=== PATIENT | female | born 1975 | race African-American/Black ===

== ENCOUNTER 2016-06-14 12:58 | Emergency (ER) | payer MEDICAID ==
[~2016-06-14] VITALS: Ht 170.2 cm; Wt 73.0 kg
[2016-06-14] MEDS ORDERED: Ketorolac 30mg Inj IV ONE (13:30)
--- NOTE | 2016-06-14 13:50 | Emergency Room Report ---
History of Present Illness General Chief Complaint: Abdominal Pain Source: Patient Present Illness HPI 41-year-old female presents to emergency Department complaining of left-sided flank pain that is 10 out of 10 in severity and radiates down into the left groin/thigh with certain positions and intermittently. Patient reports 2 episodes of vomiting yesterday denies fevers or chills. denies blood in the vomit or stool. Pt states that if she stands upright and looks down towards her feet she will have a sharp pain down the left side and her left leg almost gives out due to pain. pt. denies spinal pain. Patient denies hematuria patient denies abdominal pain. pt reports having D&C performed in March 2016 and has had intermittent spotting since, denies vaginal d/c or hx of STIs or PID. Patient denies trauma or fall or strenuous activity. Denies CP, Palpitations, LOC, AMS, dizziness, Changes in Vision, Sensation, paresthesias, or a sudden severe headache. Allergies: Coded Allergies: LATEX (Verified Allergy, Unknown, 06/14/16) Patient History Past Medical History: see triage record Past Surgical History: none Pertinent Family History: none Now: No Immunizations: UTD Reviewed Nursing Documentation: PMH: Agreed, PSxH: Agreed Nursing Documentation-PMH Past Medical History: No Stated History Review of Systems All Other Systems: negative except mentioned in HPI Physical Exam Vital Signs Date Time Temp Pulse Resp B/P Pulse Ox O2 Delivery O2 Flow Rate FiO2 06/14/16 13:06 97.2 74 20 123/81 100 Room Air Sp02 EP Interpretation: reviewed, normal General Appearance: no apparent distress, alert, GCS 15, non-toxic Head: normocephalic, atraumatic Eyes: bilateral eye PERRL, bilateral eye normal inspection ENT: hearing grossly normal, normal pharynx, no angioedema, normal voice Neck: full range of motion, supple/symm/no masses Respiratory: chest non-tender, lungs clear, normal breath sounds, speaking full sentences Cardiovascular #1: regular rate, rhythm, no edema Gastrointestinal: normal bowel sounds, soft, no guarding, no rebound, other - Left lower abdominal TTP, and flank TTP, no right sided abdominal TTP, no peritoneal signs, no guarding. Rectal: deferred Genitourinary: normal inspection, no CVA tenderness, CVA tenderness (L) Musculoskeletal: back normal, gait/station normal, normal range of motion, tender - left paraspinal TTP vs CVA TTP , no midline TTP, no obvious deformities. Neurologic: alert, oriented x3, responsive, motor strength/tone normal, sensory intact, speech normal Psychiatric: judgement/insight normal, memory normal, mood/affect normal, no suicidal/homicidal ideation Skin: normal color, no rash, warm/dry, well hydrated Lymphatic: no adenopathy Medical Decision Making PA Attestation Dr. Valdes is my supervising Physician whom patient management has been discussed with. Diagnostic Impression: Primary Impression: Left flank pain Additional Impression: Sciatica of left side ER Course 41-year-old female presents to emergency Department complaining of left-sided flank pain that is 10 out of 10 in severity and radiates down into the left groin/thigh with certain positions and intermittently. Patient reports 2 episodes of vomiting yesterday denies fevers or chills. Patient denies hematuria patient denies abdominal pain. Patient denies trauma or fall or strenuous activity. Ddx considered but are not limited to Diverticulitis, acute appy, diarrhea,UC, PUD, GE, pancreatitis, gallstone, kidney stone, pyelonephritis, UTI, obstruction. Vital signs: are WNL, pt. is afebrile H&PE are most consistent with possible kidney stone or sciatica. ORDERS: -CBC, BMP: electrolytes ok, no anemia - unremarkable - UA: RBC's and occult blood in the urine suspicious for renal stones. -Urine Hcg: Negative - CT abdomen and Pelvis NON-CONTRAST: no stones, 14mm mass in the liver segment 2 most likely benign cyst, trace free cul-de-sac fluid noted, calcified fibroid , no renal stones. gallbladder , pancreas, and appendix WNL per preliminary Radiology report. ED INTERVENTIONS: -- 1000NS --30mg Toradol IV -Soma PO DISCHARGE: At this time pt. is stable for d/c to home. Will provide printed patient care instructions, and any necessary prescriptions. Care plan and follow up instructions have been discussed with the patient prior to discharge. Labs Test 06/14/16 13:40 White Blood Count 11.1 K/UL (4.8-10.8) Red Blood Count 5.78 M/UL (4.20-5.40) Hemoglobin 13.0 G/DL (12.0-16.0) Hematocrit 42.9 % (37.0-47.0) Mean Corpuscular Volume 74 FL (80-99) Mean Corpuscular Hemoglobin 22.5 PG (27.0-31.0) Mean Corpuscular Hemoglobin Concent 30.4 G/DL (32.0-36.0) Red Cell Distribution Width 12.7 % (11.6-14.8) Platelet Count 413 K/UL (150-450) Mean Platelet Volume 6.0 FL (6.5-10.1) Neutrophils (%) (Auto) 73.9 % (45.0-75.0) Lymphocytes (%) (Auto) 17.3 % (20.0-45.0) Monocytes (%) (Auto) 6.7 % (1.0-10.0) Eosinophils (%) (Auto) 1.3 % (0.0-3.0) Basophils (%) (Auto) 0.8 % (0.0-2.0) Urine Color Pale yellow Urine Appearance Clear Urine pH 5 (4.5-8.0) Urine Specific Stigler 1.015 (1.005-1.035) Urine Protein Negative (NEGATIVE) Urine Glucose (UA) Negative (NEGATIVE) Urine Ketones Negative (NEGATIVE) Urine Occult Blood 2+ (NEGATIVE) Urine Nitrite Negative (NEGATIVE) Urine Bilirubin Negative (NEGATIVE) Urine Urobilinogen Normal MG/DL (0.0-1.0) Urine Leukocyte Esterase 1+ (NEGATIVE) Urine RBC 2-4 /HPF (0 - 2) Urine WBC 2-4 /HPF (0 - 2) Urine Squamous Epithelial Cells Few /LPF (NONE/OCC) Urine Bacteria Few /HPF (NONE) Urine HCG, Qualitative Negative Sodium Level 135 mEQ/L (135-145) Potassium Level 4.1 mEQ/L (3.4-4.9) Chloride Level 96 mEQ/L (98-107) Carbon Dioxide Level 25 mEQ/L (20-30) Anion Gap 14 (5-15) Blood Urea Nitrogen 14 mg/dL (7-23) Creatinine 0.9 mg/dL (0.5-0.9) Estimat Glomerular Filtration Rate > 60 mL/min (>60) Glucose Level 90 mg/dL (74-106) Calcium Level 9.1 mg/dL (8.6-10.2) Last Vital Signs Date Time Temp Pulse Resp B/P Pulse Ox O2 Delivery O2 Flow Rate FiO2 06/14/16 13:06 97.2 74 20 123/81 100 Room Air Disposition: HOME, SELF-CARE Condition: Stable Scripts Acetaminophen* (TYLENOL EXTRA STRENGTH*) 500 Mg Tablet 500 MG ORAL Q6H, #30 TAB 0 Refills Prov: Pennie Smallwood 06/14/16 Cyclobenzaprine Hcl* (FLEXERIL*) 10 Mg Tablet 10 MG ORAL THREE TIMES A DAY for 7 Days, #21 TAB Prov: Pennie Smallwood 06/14/16 Patient Instructions: Flank Pain, [id number], Sciatica, [id number] Additional Instructions: Take medications as directed. Follow up with PCP in 3-5 days Return sooner to ED if new symptoms occur, or current symptoms become worse. - Please note that this Emergency Department Report was dictated using [employer] separator technology software, occasionally this can lead to erroneous entry secondary to interpretation by the dictation equipment. Pennie Smallwood Jun 14, 2016 13:50
[2016-06-14 14:04] LABS: BASOPHILS % (AUTO) 0.8 % (0.0-2.0); EOSINOPHILS % (AUTO) 1.3 % (0.0-3.0); LYMPHOCYTES % (AUTO) 17.3 % (20.0-45.0); MEAN CORPUSCULAR HEMOGLOBIN 22.5 PG (27.0-31.0); MEAN CORPUSCULAR HGB CONC 30.4 G/DL (32.0-36.0); MEAN CORPUSCULAR VOLUME 74 FL (80-99); MONOCYTES % (AUTO) 6.7 % (1.0-10.0); NEUTROPHILS % (AUTO) 73.9 % (45.0-75.0); PLATELET COUNT 413 K/UL (150-450); RED BLOOD COUNT 5.78 M/UL (4.20-5.40); RED CELL DISTRIBUTION WIDTH 12.7 % (11.6-14.8); WHITE BLOOD COUNT 11.1 K/UL (4.8-10.8)
[2016-06-14 14:09] LABS: APPEARANCE,URINE CLEAR; KETONES,URINE NEGATIVE (NEGATIVE); LEUKOCYTE ESTERASE ,URINE 1+ (NEGATIVE); NITRITE,URINE NEGATIVE (NEGATIVE); PH,URINE 5 (4.5-8.0); PROTEIN,URINE NEGATIVE (NEGATIVE); UROBILINOGEN,URINE NORMAL MG/DL (0.0-1.0)
[2016-06-14 14:18] LABS: ANION GAP 14 (5-15); BACTERIA,URINE FEW /HPF; CALCIUM 9.1 mg/dL (8.6-10.2); CARBON DIOXIDE 25 mEQ/L (20-30); CHLORIDE 96 mEQ/L (98-107); CREATININE 0.9 mg/dL (0.5-0.9); GLOMERULAR FILTRATION RATE > 60 mL/min (>60); HEMOLYSIS 1; POTASSIUM 4.1 mEQ/L (3.4-4.9); SODIUM 135 mEQ/L (135-145); SQUAMOUS EPITHELIAL CELL,UR FEW /LPF (NONE/OCC)
[2016-06-14] MEDS ORDERED: TYLENOL EXTRA500 MG ORAL (15:44)
[2016-06-14] MEDS ORDERED: CYCLOBENZAPRINE10 MG ORAL (15:44)
[2016-06-14 15:56] VITALS: BP 119/75
--- NOTE | 2016-06-14 16:16 | Diagnostic Imaging Report ---
Indication: Left flank pain radiating to groin area Technique: Spiral acquisitions obtained through the abdomen and pelvis. No oral or IV contrast, per stone protocol. Multiplanar reconstructions were generated. Total dose length product 729 mGycm. CTDIvol(s) 14 mGy Comparison: None Findings: No renal or ureteral calculi demonstrated. No hydronephrosis nor hydroureter. The lack of IV contrast limits assessment of the renal parenchyma. No gross renal mass or cyst demonstrated. Lack of IV contrast limits assessment of the other solid organs. The liver demonstrates a 14 mm soft tissue attenuation lesion in segment 2. The gallbladder, bile ducts, pancreas, spleen, adrenals are unremarkable. No pelvic mass or. A calcification is seen in the right adnexal region, probably a degenerated exophytic fibroid. There is trace free fluid in the pelvic cul-de-sac. There is no evidence of diverticulosis or diverticulitis. The appendix is normal. No small bowel distention. No free or loculated intraperitoneal air or fluid. There is a small fat-containing umbilical hernia. The bones are unremarkable. The included lung bases are clear Impression: No acute abnormality Negative for evidence of urinary stone disease 14 mm lesion in segment 2 of the liver. Possibly but not definitively a benign cyst. Recommend ultrasound to determine cystic or solid Trace free cul-de-sac fluid Incidental findings as noted, including small fat-containing umbilical hernia, small calcified degenerated uterine fibroid The CT scanner at [facility] is accredited by the [employer] and the scans are performed using protocols designed to limit radiation exposure to as low as reasonably achievable to attain images of sufficient resolution adequate for diagnostic evaluation.
[2016-06-14 16:24] VITALS: BP 119/75
== END 2016-06-14 16:25 | disposition home or self-care (01) ==
LOC: EMR 13:39
DX: R10.9 Unspecified abdominal pain (principal); M54.32 Sciatica, left side; R11.10 Vomiting, unspecified; Z91.040 Latex allergy status; K76.9 Liver disease, unspecified; K42.9 Umbilical hernia without obstruction or gangrene; D25.9 Leiomyoma of uterus, unspecified
CPT/HCPCS: 36415; 74176; 80048; 81003; 81025; 85025; 96360; 96374; 99284; J1885; J7040

== ENCOUNTER 2017-04-28 21:52 | Emergency (ER) | payer MEDICAID ==
[~2017-04-28] VITALS: Ht 172.7 cm; Wt 69.4 kg
[~2017-04-28 21:52] MED LIST: CYCLOBENZAPRINE10 MG ORAL; TYLENOL EXTRA500 MG ORAL
[2017-04-28] MEDS ORDERED: NKM (22:03)
[2017-04-28 22:04] VITALS: BP 120/81
[2017-04-28] MEDS ORDERED: Norco 5mg/325mg tab ORAL ONE (22:15)
--- NOTE | 2017-04-28 22:44 | Emergency Room Report ---
History of Present Illness General Chief Complaint: Multiple Trauma/Fall Source: Patient Present Illness HPI This is a 42-year-old female with no significant past medical history. She presents with chief complaint of neck pain and head injury. At 6:30 this morning, she slipped and fell in the bathtub. She said she hit the right side of her head and shoulder area. She said she passed out for a few seconds. Now most her pain as her neck. There is stiff. Can't turn without hurting. Also with soreness of his shoulder area. No other injury. Pain is 8/10. No incontinence of bowel or urine. No focal deficit. Allergies: Coded Allergies: LATEX (Verified Allergy, Unknown, 06/14/16) Patient History Past Medical History: see triage record, old chart reviewed Past Surgical History: other Pertinent Family History: none Social History: Denies: smoking Last Menstrual Period: 04/09/17 Now: No Immunizations: other Reviewed Nursing Documentation: PMH: Agreed, PSxH: Agreed Nursing Documentation-PMH Past Medical History: No History, Except For Hx Asthma: Yes - Bronchitis Review of Systems Eye: Denies: eye pain, blurred vision ENT: Denies: ear pain, nose congestion, throat swelling Respiratory: Denies: cough, shortness of breath Cardiovascular: Denies: chest pain, palpitations Gastrointestinal: Denies: abdominal pain, diarrhea, nausea, vomiting Musculoskeletal: Denies: back pain, joint pain Skin: Denies: rash Neurological: Denies: headache, numbness Endocrine: Denies: increased thirst, increased urine Hematologic/Lymphatic: Denies: easy bruising All Other Systems: negative except mentioned in HPI Physical Exam Vital Signs Date Time Temp Pulse Resp B/P (MAP) Pulse Ox O2 Delivery O2 Flow Rate FiO2 04/28/17 21:57 98.0 79 17 120/81 99 Room Air 98.1 vitals normal Sp02 EP Interpretation: reviewed, normal General Appearance: well appearing, no apparent distress, alert Head: normocephalic, atraumatic Eyes: bilateral eye PERRL, bilateral eye EOMI ENT: hearing grossly normal, normal pharynx Neck: supple, no meningismus, tender - Diffuse tenderness to bilateral neck area. No midline step-off. Respiratory: chest non-tender, lungs clear, normal breath sounds Cardiovascular #1: regular rate, rhythm, no murmur Gastrointestinal: normal bowel sounds, non tender, no mass, no organomegaly, no bruit, non-distended Musculoskeletal: back normal, gait/station normal, normal range of motion, other - Mild tenderness to the right shoulder but full range of motion. No bony tenderness. Sensation normal. Psychiatric: mood/affect normal Skin: warm/dry Medical Decision Making Diagnostic Impression: Primary Impression: Head injury, acute Qualified Codes: S09.90XA - Unspecified injury of head, initial encounter Additional Impressions: Cervical muscle strain Qualified Codes: S16.1XXA - Strain of muscle, fascia and tendon at neck level , initial encounter Contusion of shoulder, right Qualified Codes: S40.011A - Contusion of right shoulder, initial encounter ER Course She presents with soft tissue injury from a fall. No fracture or dislocation. We'll discharge home. Last Vital Signs Date Time Temp Pulse Resp B/P (MAP) Pulse Ox O2 Delivery O2 Flow Rate FiO2 04/28/17 22:17 98.0 04/28/17 22:04 79 17 120/81 99 Room Air Status: improved Disposition: HOME, SELF-CARE Condition: Stable Scripts Ibuprofen* (MOTRIN*) 600 Mg Tablet 600 MG ORAL THREE TIMES A DAY, #30 TAB 0 Refills Prov: KIMO SLATER M.D. 04/28/17 Hydrocodone/Acetaminophen 5-325* (HYDROCODONE/ACETAMINOPHEN 5-325*) 1 Each Tablet 1 TAB ORAL Q6H Y for For Pain, #20 TAB 0 Refills Prov: KIMO SLATER M.D. 04/28/17 Additional Instructions: Followup with your DrCathleen in 7 days. Return if worse. KIMO SLATER M.D. Apr 28, 2017 22:44
[2017-04-28] MEDS ORDERED: HYDROCODON-ACE1 EA15 ORAL (23:41)
[2017-04-28] MEDS ORDERED: IBUPROFEN600 MG ORAL (23:41)
[2017-04-28 23:45] VITALS: BP 120/81
--- NOTE | 2017-04-29 11:02 | Diagnostic Imaging Report ---
Indication: Neck pain. Technique: Continuous helical imaging of the cervical spine was obtained transaxially from the skull base to the upper thoracic spine. 2-D coronal and sagittal reformatted images were obtained. Automatic Exposure Control was utilized. Total Dose length Product (DLP): 256.[address] Dose Index Volume (CTDIvol): 12 mGy Comparison: None Findings: There is no acute fracture or malalignment identified. There is no soft tissue swelling identified. Mild uncovertebral arthritis is demonstrated at multiple levels. Some of the intervertebral discs show mild narrowing. There is reversal of cervical lordosis which may be due to muscle spasm. Impression: No acute injury Mild spondylosis The CT scanner at [facility] is accredited by the [employer] and the scans are performed using dose optimization techniques as appropriate to a performed exam including Automatic Exposure control.
--- NOTE | 2017-04-29 11:06 | Diagnostic Imaging Report ---
Indication: Head trauma and headache Technique: Contiguous 5 mm thick transaxial imaging of the head obtained in a Siemens Sensation [address] scanner. Soft tissue and bone windows generated. Automatic Exposure Control was utilized. Total Dose length Product (DLP): 1302.[address] Dose Index Volume (CTDIvol): 70.38 mGy Comparison: none Findings: The size and configuration of the cortical sulci, basal cisterns, and ventricles are within normal limits for age. There is no mass effect, midline shift, or edema identified. There is no evidence of acute hemorrhage or abnormal intra-axial or extra-axial fluid collections. The bones and soft tissues are unremarkable. Impression: No mass effect, edema or acute bleed. The CT scanner at [facility] is accredited by the [employer] and the scans are performed using dose optimization techniques as appropriate to a performed exam including Automatic Exposure control.
== END 2017-04-28 23:45 | disposition home or self-care (01) ==
LOC: EMR 22:30
DX: S09.8XXA Other specified injuries of head, initial encounter (principal); S16.1XXA Strain of muscle, fascia and tendon at neck level, initial encounter; S40.011A Contusion of right shoulder, initial encounter; W18.2XXA Fall in (into) shower or empty bathtub, initial encounter; Y92.9 Unspecified place or not applicable; M47.812 Spondylosis without myelopathy or radiculopathy, cervical region; Z91.040 Latex allergy status; J45.909 Unspecified asthma, uncomplicated
CPT/HCPCS: 70450; 72125; 99283

== ENCOUNTER 2018-01-01 15:31 | Emergency (ER) | payer MEDICAID ==
[~2018-01-01] VITALS: Ht 172.7 cm; Wt 65.8 kg
[~2018-01-01 15:31] MED LIST changes: +HYDROCODON-ACE1 EA15 ORAL; +IBUPROFEN600 MG ORAL; +NKM
[2018-01-01] MEDS ORDERED: NKM (15:55)
[2018-01-01 16:00] VITALS: BP 124/73
[2018-01-01] MEDS ORDERED: Albuterol/Ipratropium 3ml neb HHN ONE ×2 (16:15→16:45)
[2018-01-01] MEDS ORDERED: Benzonatate 100mg Perles ORAL ONE (16:15)
--- NOTE | 2018-01-01 16:17 | Emergency Room Report ---
History of Present Illness General Chief Complaint: Flu Like Symptoms Source: Patient (Virgilio Clarke) Present Illness HPI 42-year-old female patient presents ER complaining of cough and difficulty breathing for the past 3 days. Reports symptoms worsen night. Reports history of asthma. Reports that she smokes cigarettes. Reports no history of CHF or ME. Denies recent travel. Denies history of cancer. Denies taking control medication. Also complaining of sore throat and earache during this time. Denies headache contrary to triage report. Reports hasn't used inhaler because it is and she does not "believe its working". Requesting refill of her medication. Denies fever. Denies chest pain, abdominal pain, vomiting, diarrhea. (Virgilio Clarke) Allergies: Coded Allergies: LATEX (Verified Allergy, Unknown, 06/14/16) Patient History Past Medical History: see triage record Last Menstrual Period: on period Reviewed Nursing Documentation: PMH: Agreed; PSxH: Agreed (Virgilio Clarke) Nursing Documentation-PMH Past Medical History: No Stated History Hx Asthma: Yes - Bronchitis (Virgilio Clarke) Review of Systems All Other Systems: negative except mentioned in HPI (Virgilio Clarke) Physical Exam Vital Signs Date Time Temp Pulse Resp B/P (MAP) Pulse Ox O2 Delivery O2 Flow Rate FiO2 01/01/18 15:51 99.2 74 16 124/73 97 Room Air 99.1 Sp02 EP Interpretation: reviewed, normal General Appearance: well appearing, no apparent distress, alert, GCS 15, non- toxic Head: normocephalic, atraumatic Eyes: bilateral eye normal inspection, bilateral eye PERRL ENT: hearing grossly normal, normal pharynx, no angioedema, normal voice, TMs + canals normal, uvula midline, moist mucus membranes, nasal congestion Neck: full range of motion Respiratory: lungs clear, no rhonchi, no respiratory distress, no accessory muscle use, decreased breath sounds, speaking full sentences, wheezing - diffuse intermittent expiratory wheezing Cardiovascular #1: regular rate, rhythm, no edema Gastrointestinal: non tender, soft, no mass, non-distended, no guarding, no rebound Genitourinary: no CVA tenderness Musculoskeletal: back normal, digits/nails normal, gait/station normal, normal range of motion, non-tender Neurologic: alert, oriented x3, responsive, motor strength/tone normal, sensory intact Skin: no rash Lymphatic: adenopathy (Virgilio Clarke) Medical Decision Making PA Attestation Dr. Cruz is my supervising Physician whom patient management has been discussed with. (Virgilio Clarke) Diagnostic Impression: Primary Impression: Asthma exacerbation Additional Impression: Sore throat ER Course Pt presents to ED c/o cough, sore throat, and breathing difficulty. DDX considered but are not limited to asthma, viral URI, influenza, bronchitis, pneumonia. No rhonchi or rales, patient afebrile, low suspicion for pneumonia at this time , does not require x-rays or imaging. DDX considered but are not limited to pharyngitis, laryngitis, URI, peritonsillar abscess, tonsillitis. Low suspicion for peritonsillar abscess, no neck stiffness, no hot potato voice , no stridor. VITAL SIGNS are WNL, patient is afebrile. Ordered breathing treatment and medication. ER COURSE physical exam of oropharynx shows no signs of infection, no pharyngeal erythema or tonsillar exudates, low suspicion for bacterial infection, pain likely due to coughing. Advised patient on drinking plenty of fluids and salt water gargles. Patient provided with prednisone Duoneb breathing treatment provided. following initial breathing treatment, patient reports symptoms have improved but still complaining of difficulty breathing, will provide second breathing treatment. chest x-ray negative for acute disease, patient is afebrile, does not require antibiotics, low suspicion for pneumonia. Following Second breathing treatment treatment patient states no longer having difficulty with breathing. Patient is resting comfortably in no acute distress. lungs clear to auscultation on repeat exam, moving air well. ER precautions given. take Tylenol for pain symptoms. DISCHARGE: -Rx given for Prednisone. First dose given in ER, begin giving tomorrow. -Rx provided for Albuterol MDI. -Rx provided for Tessalon Perles At this time pt is stable for d/c to home. Patient is resting comfortably in no acute distress, nontoxic appearing, able to answer questions without difficulty. Patient to take medications as instructed Will provide with patient care instructions and any necessary prescriptions. Care plan and follow-up instructions provided. Patient instructed to follow-up with primary care provider in 3 - 5 days. Patient questions asked and answered. Patient reports understanding and agreement to treatment plan. ER precautions given. Patient instructed to return to ER immediately for any new or worsening of symptoms including but not limited to increasing SOB, persistent fever. - Please note that this Emergency Department Report was dictated using [employer] scrub tech technology software, occasionally this can lead to erroneous entry secondary to interpretation by the dictation equipment. (Virgilio Clarke) Chest X-Ray Diagnostic Results Chest X-Ray Diagnostic Results : Chest X-Ray Ordered: Yes # of Views/Limited/Complete: 1 View Indication: Chest Pain EP Interpretation: Yes PA Xray: Interpretation reviewed, by supervising MD, and agrees with findings. Interpretation: no consolidation, no effusion, no pneumothorax, no acute cardiopulmonary disease Impression: No acute disease PA Scribe Text Ambrosio Clarke PA-C (Virgilio Clarke) Chest X-Ray Diagnostic Results : Electronically Signed by: Scribe documentation reviewed by me and is accurate, Kyle Cruz MD (Kyle Cruz MD) Last Vital Signs Date Time Temp Pulse Resp B/P (MAP) Pulse Ox O2 Delivery O2 Flow Rate FiO2 01/01/18 15:51 99.2 74 16 124/73 97 Room Air 99.1 Status: improved (Virgilio Clarke) Disposition: HOME, SELF-CARE Condition: Stable Scripts Benzonatate* (TESSALON PERLE*) 100 Mg Capsule 100 MG ORAL THREE TIMES A DAY, #20 PERLE Prov: Virgilio Clarke 01/01/18 Prednisone* (PREDNISONE*) 20 Mg Tablet 40 MG ORAL DAILY for 4 Days, #8 TAB Prov: Virgilio Clarke 01/01/18 Albuterol Sulfate* (ALBUTEROL SULFATE MDI*) 8.5 Gm Hfa.aer.ad 2 PUFF INH Q6H, #1 INH 0 Refills Prov: Virgilio Clarke 01/01/18 Patient Instructions: Asthma, Acute Bronchospasm, Sore Throat, [id number] Additional Instructions: Followup with primary care provider in 2-3 days. F/u with primary care provider. Take medications as directed. Tylenol for pain. Salt water gargles. Patient questions asked and answered. ER precautions given, patient instructed to return to ER immediately for any new or worsening of symptoms. Virgilio Clarke Jan 01, 2018 16:17 Kyle Cruz MD Jan 03, 2018 07:07
[2018-01-01] MEDS ORDERED: PREDNISONE20 MG ORAL (17:30)
[2018-01-01] MEDS ORDERED: TESSALON PERLE100 MG ORAL (17:30)
[2018-01-01] MEDS ORDERED: ALBUTEROL SULF8.5 GM INH (17:30)
[2018-01-01 17:43] VITALS: BP 118/71
--- NOTE | 2018-01-02 08:37 | Diagnostic Imaging Report ---
Indication: Cough Technique: One view of the chest Comparison: Findings: Lungs and pleural spaces are clear. Heart size is normal Impression: No acute process
== END 2018-01-01 17:43 | disposition home or self-care (01) ==
LOC: EMR 16:25
DX: J45.901 Unspecified asthma with (acute) exacerbation (principal); J02.9 Acute pharyngitis, unspecified; F17.210 Nicotine dependence, cigarettes, uncomplicated; Z91.040 Latex allergy status
CPT/HCPCS: 71045; 94640; 94664; 99284; J7512; J7620

== ENCOUNTER 2018-07-14 21:07 | Emergency (ER) | payer MEDICAID ==
[~2018-07-14] VITALS: Ht 175.3 cm; Wt 63.5 kg
[~2018-07-14 21:07] MED LIST changes: +ALBUTEROL SULF8.5 GM INH; +PREDNISONE20 MG ORAL; +TESSALON PERLE100 MG ORAL
[2018-07-14] MEDS ORDERED: SYNTHROID25 MCG ORAL (21:12)
--- NOTE | 2018-07-14 21:22 | Emergency Room Report ---
History of Present Illness General Chief Complaint: Chest Pain Source: Patient Present Illness HPI This is a 43-year-old female with history of asthma and thyroid problem. She presents with chief complaint of chest pain. Onset for last 3-4 days now. Pain is achy dull. Localized the rest of the chest. It is constant. Gradual onset. She does feel short of breath specialist a deep breath. Worse with movement. Worse with lying flat. No nausea no vomiting. No fever chills. No radiation the pain. No diaphoresis. No trauma. Pain is 7 out of 10. No cardiac history in the family. Does have family history of DVT/PE in her grandmother.. Allergies: Coded Allergies: LATEX (Verified Allergy, Unknown, 06/14/16) Patient History Past Medical History: see triage record, old chart reviewed, asthma Past Surgical History: other Pertinent Family History: none Social History: Denies: smoking Last Menstrual Period: 06/23/18 Now: No Immunizations: other Reviewed Nursing Documentation: PMH: Agreed; PSxH: Agreed Nursing Documentation-PMH Past Medical History: No History, Except For Hx Asthma: Yes - Bronchitis Review of Systems Eye: Denies: eye pain, blurred vision ENT: Denies: ear pain, nose congestion, throat swelling Respiratory: Denies: cough, shortness of breath Cardiovascular: Reports: chest pain; Denies: palpitations Gastrointestinal: Denies: abdominal pain, diarrhea, nausea, vomiting Musculoskeletal: Denies: back pain, joint pain Skin: Denies: rash Neurological: Denies: headache, numbness Endocrine: Denies: increased thirst, increased urine Hematologic/Lymphatic: Denies: easy bruising All Other Systems: negative except mentioned in HPI Physical Exam Vital Signs Date Time Temp Pulse Resp B/P (MAP) Pulse Ox O2 Delivery O2 Flow Rate FiO2 07/14/18 21:09 98.1 67 18 96 Room Air vitals normal Sp02 EP Interpretation: reviewed, normal General Appearance: well appearing, no apparent distress, alert Head: normocephalic, atraumatic Eyes: bilateral eye PERRL, bilateral eye EOMI ENT: hearing grossly normal, normal pharynx Neck: full range of motion, supple, no meningismus Respiratory: chest non-tender, lungs clear, normal breath sounds Cardiovascular #1: regular rate, rhythm, no murmur Gastrointestinal: normal bowel sounds, non tender, no mass, no organomegaly, no bruit, non-distended Musculoskeletal: back normal, gait/station normal, normal range of motion Psychiatric: mood/affect normal Skin: warm/dry Medical Decision Making Diagnostic Impression: Primary Impression: Chest pain Qualified Codes: R07.9 - Chest pain, unspecified ER Course Patient with atypical chest pain. Pain been ongoing for 3-4 days. EKG normal. Troponin 0. Her d-dimer is also negative. I see no evidence of ACS, PE, dissection to name a few. This most likely musculoskeletal pain. We'll discharge home. EKG Diagnostic Results Rate: normal Rhythm: NSR ST Segments: no acute changes ASA given to the pt in ED: Yes Rhythm Strip Diag. Results EP Interpretation: yes Rate: 60 Rhythm: NSR Chest X-Ray Diagnostic Results Chest X-Ray Diagnostic Results : Chest X-Ray Ordered: Yes # of Views/Limited/Complete: 1 View Indication: Chest Pain EP Interpretation: Yes Interpretation: no consolidation, no effusion, no pneumothorax Impression: No acute disease Electronically Signed by: Luis Munoz MD Last Vital Signs Date Time Temp Pulse Resp B/P (MAP) Pulse Ox O2 Delivery O2 Flow Rate FiO2 07/14/18 21:09 98.1 67 18 96 Room Air Status: improved Disposition: HOME, SELF-CARE Condition: Stable Scripts Ibuprofen* (MOTRIN*) 600 Mg Tablet 600 MG ORAL THREE TIMES A DAY, #30 TAB 0 Refills Prov: Luis Munoz MD 07/14/18 Hydrocodone/Acetaminophen 5-325* (HYDROCODONE/ACETAMINOPHEN 5-325*) 1 Each Tablet 1 TAB ORAL Q6H PRN for For Pain, #10 TAB 0 Refills Prov: Luis Munoz MD 07/14/18 Patient Instructions: Nonspecific Chest Pain Additional Instructions: Follow-up with your doctor in 7 days. Return if symptom worsen. Luis Munoz MD July 14, 2018 21:22
--- NOTE | 2018-07-14 21:25 | NUR ---
ED Nurse Note: Patient walked in to ER c/o chest pain. Per patient it is painfull for her to laugh, walk, and exercise. AAO x4, VSS at this time, skin is dry, intact warm to touch. Patient has nonlabored breathing O2 sat 100%.
[2018-07-14] MEDS ORDERED: Ketorolac 30mg Inj IV ONE (21:30)
[2018-07-14] MEDS ORDERED: Aspirin Baby 81mg ORAL ONE (21:30)
[2018-07-14 21:37] LABS: EOSINOPHILS % (AUTO) 4.2 % (0.0-3.0); HEMATOCRIT 37.7 % (37.0-47.0); HEMOGLOBIN 12.1 G/DL (12.0-16.0); LYMPHOCYTES % (AUTO) 35.3 % (20.0-45.0); MEAN CORPUSCULAR VOLUME 69 FL (80-99); MONOCYTES % (AUTO) 5.7 % (1.0-10.0); NEUTROPHILS % (AUTO) 53.8 % (45.0-75.0); PLATELET COUNT 362 K/UL (150-450); RED BLOOD COUNT 5.44 M/UL (4.20-5.40); WHITE BLOOD COUNT 9.3 K/UL (4.8-10.8)
[2018-07-14 21:55] LABS: ANION GAP 5 mmol/L (5-15); BLOOD UREA NITROGEN 10 mg/dL (7-18); CALCIUM 8.8 MG/DL (8.5-10.1); CARBON DIOXIDE 29 MMOL/L (21-32); CHLORIDE 106 MMOL/L (98-107); CREATININE 0.8 MG/DL (0.55-1.30); POTASSIUM 3.6 MMOL/L (3.5-5.1); SODIUM 140 MMOL/L (136-145)
[2018-07-14] MEDS ORDERED: Morphine Sulfate 4mg/ml Inj (IV USE ONLY) IVP ONE (22:00)
[2018-07-14 22:10] LABS: ALANINE AMINOTRANSFERASE 17 U/L (12-78); ALBUMIN 3.8 G/DL (3.4-5.0); ALBUMIN/GLOBULIN RATIO 0.9 (1.0-2.7); ALKALINE PHOSPHATASE 78 U/L (46-116); ASPARTATE AMINO TRANSFERASE 16 U/L (15-37); BILIRUBIN,TOTAL 0.3 MG/DL (0.2-1.0); CKMB 1.4 NG/ML (0.0-3.6); CREATINE KINASE 163 U/L (26-308)
[2018-07-14 22:13] LABS: APPEARANCE,URINE CLEAR; BILIRUBIN, URINE NEGATIVE (NEGATIVE); COLOR,URINE PALE YELLOW; GLUCOSE, URINE (UA) NEGATIVE (NEGATIVE); KETONES,URINE NEGATIVE (NEGATIVE); LEUKOCYTE ESTERASE ,URINE NEGATIVE (NEGATIVE); NITRITE,URINE NEGATIVE (NEGATIVE); PH,URINE 5 (4.5-8.0); PROTEIN,URINE NEGATIVE (NEGATIVE); UROBILINOGEN,URINE NORMAL MG/DL (0.0-1.0)
[2018-07-14] MEDS ORDERED: HYDROCODON-ACE1 EA15 ORAL (22:38)
[2018-07-14] MEDS ORDERED: IBUPROFEN600 MG ORAL (22:38)
--- NOTE | 2018-07-14 22:55 | NUR ---
ED Nurse Note: pt cleared to be d/c per ERMD, pt discharge and aftercare instruction provided w/ prescription, pt education done via discussion and handout, pt advised to follow up with pcp or return to ed if changes in condition, pt verbalized understanding and agrees with plan, vss, ambulatory w/ steady gait, accompanied by family member, iv d/c and id band removed, pt left w/ all belongings.
[2018-07-14 23:55] VITALS: BP 126/83
--- NOTE | 2018-07-15 11:40 | Diagnostic Imaging Report ---
Indication: Dyspnea Comparison: None A single view chest radiograph was obtained. Findings: Cardiomediastinal appearance is within normal limits for age. The lungs are clear. Pulmonary vascularity is appropriate. The diaphragmatic contour is smooth and costophrenic angles are sharp. No pleural effusions are identified. The bones are unremarkable. Impression: No acute findings
== END 2018-07-14 22:54 | disposition home or self-care (01) ==
LOC: EMR 21:25
DX: R07.9 Chest pain, unspecified (principal); R06.02 Shortness of breath; Z91.040 Latex allergy status
CPT/HCPCS: 36415; 71045; 80053; 81003; 81025; 82550; 82553; 84484; 85025; 85379; 93005; 96374; 96375; 99284; J1885; J2270; J2405

== ENCOUNTER 2018-09-24 19:29 | Emergency (ER) | payer MEDICAID ==
[~2018-09-24] VITALS: Ht 172.7 cm; Wt 72.6 kg
[~2018-09-24 19:29] MED LIST changes: +SYNTHROID25 MCG ORAL
[2018-09-24 19:50] VITALS: BP 127/90
--- NOTE | 2018-09-24 19:50 | NUR ---
ER DISCHARGE NOTE: Patient is cleared to be discharged per ERMD, pt is aox4, on room air, with stable vital signs. pt was given dc and prescription instructions, pt was able to verbalize understanding, pt id band removed without complications. pt is able to ambulate with steady gait. pt took all belongings.
--- NOTE | 2018-09-24 19:51 | Emergency Room Report ---
History of Present Illness General Chief Complaint: Allergic Reaction Present Illness HPI 44-year-old female with no significant past medical history here complaining of a pruritic rash on both hands, feet, face, and neck. Patient reports that she is allergic to many things and has tried triamcinolone cream as well as hydrocortisone cream with no improvement rash started 2 days ago after she touched an unknown plan however denies any anaphylaxis difficulty breathing. Patient also complains of similar rash in the suprapubic area. Denies chest pain, short of breath, palpitation, and other associated symptoms. Allergies: Coded Allergies: LATEX (Verified Allergy, Unknown, 06/14/16) Patient History Past Medical History: see triage record Past Surgical History: unable to obtain Pertinent Family History: unable to obtain Last Menstrual Period: 09/11/18 Now: No Immunizations: UTD Reviewed Nursing Documentation: PMH: Agreed; PSxH: Agreed Nursing Documentation-PMH Hx Asthma: Yes Review of Systems All Other Systems: negative except mentioned in HPI Physical Exam Vital Signs Date Time Temp Pulse Resp B/P (MAP) Pulse Ox O2 Delivery O2 Flow Rate FiO2 09/24/18 19:32 97.3 65 18 127/90 (102) 98 Room Air Sp02 EP Interpretation: reviewed, normal General Appearance: normal inspection, well appearing, no apparent distress Head: normocephalic, atraumatic Eyes: bilateral eye normal inspection, bilateral eye PERRL ENT: normal ENT inspection, hearing grossly normal, normal pharynx, no angioedema Neck: normal inspection, full range of motion, supple, thyroid normal Respiratory: chest non-tender, lungs clear, normal breath sounds, no rhonchi, no wheezing Cardiovascular #1: normal inspection, regular rate, rhythm, no murmur Gastrointestinal: normal inspection, non tender, soft Genitourinary: no CVA tenderness Musculoskeletal: normal inspection, back normal, digits/nails normal Neurologic: normal inspection, alert, oriented x3 Psychiatric: normal inspection, judgement/insight normal, memory normal Skin: other - Asymmetric rash on both hands, face, ankles, Lymphatic: normal inspection, no adenopathy Medical Decision Making PA Attestation All my diagnosis and treatment plans were reviewed ad discussed with my supervising physician Dr. Kenyon Diagnostic Impression: Primary Impression: Allergic urticaria Additional Impression: Vaginitis ER Course 44-year-old female with no significant past medical history here complaining of a pruritic rash on both hands, feet, face, and neck. Patient reports that she is allergic to many things and has tried triamcinolone cream as well as hydrocortisone cream with no improvement rash started 2 days ago after she touched an unknown plan however denies any anaphylaxis difficulty breathing. Patient also complains of similar rash in the suprapubic area. Denies chest pain, short of breath, palpitation, and other associated symptoms. Ddx considered but are not limited to: Eczema, scabies, lice, Vital signs: are WNL, pt. is afebrile H&PE are most consistent with: Allergic urticaria, vaginitis ORDERS: Hydrocortisone aloe vera cream, prednisone, Benadryl, Lotrisone cream ED INTERVENTIONS: None required at this time. DISCHARGE: At this time pt. is stable for d/c to home. Will provide printed patient care instructions, and any necessary prescriptions. Care plan and follow up instructions have been discussed with the patient prior to discharge. Patient is very anxious as well as all of the rash to go away right away and keeps asking how long it will take for to go away. 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 Last Vital Signs Date Time Temp Pulse Resp B/P (MAP) Pulse Ox O2 Delivery O2 Flow Rate FiO2 09/24/18 19:32 97.3 65 18 127/90 (102) 98 Room Air Disposition: HOME, SELF-CARE Condition: Stable Scripts Clotrimazole/Betamethasone Dip* (LOTRISONE CREAM*) 15 Gm Cream..g. 2 GM TP TWICE A DAY, #15 GM 0 Refills Prov: Anton Valles 09/24/18 Prednisone (Prednisone) 20 Mg Tablet 20 MG PO BID for 5 Days, #10 TAB Prov: Anton Valles 09/24/18 Diphenhydramine Hcl* (BENADRYL*) 25 Mg Capsule 25 MG ORAL Q8HR PRN for Itching, #21 CAP Prov: Anton Valles 09/24/18 Hydrocortisone/Aloe Vera 1%* (HYDROCORTISONE-ALOE 1% CREAM*) Y Cr 1 APPLIC TOPIC Q6H PRN for Itching, #30 GM Prov: Anton Valles 09/24/18 Patient Instructions: Contact Dermatitis, [id number], Vaginitis, [id number] Additional Instructions: See primary care provider for follow-up as your allergies are chronic and need to be sent to academic records specialist avoid contact with allergens wear cotton only underwear drink a lot of water Anton Valles Sep 24, 2018 19:52
[2018-09-24] MEDS ORDERED: HYDROCORTISONE-30 GM TOPIC (19:53)
[2018-09-24] MEDS ORDERED: PREDNISONE20 M1 PO (19:53)
[2018-09-24] MEDS ORDERED: BENADRYL25 MG ORAL (19:53)
[2018-09-24] MEDS ORDERED: LOTRISONE CREAM15 GM TP (19:53)
== END 2018-09-24 19:50 | disposition home or self-care (01) ==
LOC: EMR 19:49
DX: L50.0 Allergic urticaria (principal); N76.0 Acute vaginitis; Z91.040 Latex allergy status
CPT/HCPCS: 99283

== ENCOUNTER 2019-02-01 14:32 | Emergency (ER) | payer MEDICAID ==
[~2019-02-01] VITALS: Ht 172.7 cm; Wt 81.6 kg
[~2019-02-01 14:32] MED LIST changes: +BENADRYL25 MG ORAL; +HYDROCORTISONE-30 GM TOPIC; +LOTRISONE CREAM15 GM TP; +PREDNISONE20 M1 PO
--- NOTE | 2019-02-01 14:53 | Emergency Room Report ---
History of Present Illness General Chief Complaint: Upper Respiratory Illness Source: Patient Present Illness HPI Patient has been ill for 2 days. Has a cough, muscle aches, sore throat, head ache, ear pain and vomited once last night. She did get a flu shot this year. She also smokes. She has heard herself wheezing. She has used an inhaler in the past. She is felt feverish. Cough is nonproductive. Denies diarrhea, dysuria. Her last period was January 16 and normal for her. She takes thyroid medication. Allergies: Coded Allergies: LATEX (Verified Allergy, Unknown, 06/14/16) Patient History Past Medical History: see triage record Social History: Reports: smoking Last Menstrual Period: 01/16/2019 Reviewed Nursing Documentation: PMH: Agreed; PSxH: Agreed Nursing Documentation-PMH Past Medical History: No History, Except For Hx Asthma: Yes Review of Systems All Other Systems: negative except mentioned in HPI Physical Exam Vital Signs Date Time Temp Pulse Resp B/P (MAP) Pulse Ox O2 Delivery O2 Flow Rate FiO2 02/01/19 14:45 98.6 90 16 138/78 (98) 99 Room Air Sp02 EP Interpretation: reviewed, normal General Appearance: well appearing, no apparent distress, GCS 15 Head: normocephalic, atraumatic Eyes: bilateral eye normal inspection, bilateral eye PERRL, bilateral eye EOMI ENT: TMs + canals normal, moist mucus membranes, pharyngeal erythema - slight R Neck: full range of motion, supple Respiratory: lungs clear, normal breath sounds Cardiovascular #1: regular rate, rhythm, no edema Cardiovascular #2: 2+ radial (L) Gastrointestinal: normal inspection Musculoskeletal: gait/station normal, no calf tenderness Neurologic: alert, grossly normal Psychiatric: mood/affect normal Skin: no rash, warm/dry Medical Decision Making Diagnostic Impression: Primary Impression: Upper respiratory infection Qualified Codes: J06.9 - Acute upper respiratory infection, unspecified Additional Impression: Sinusitis Qualified Codes: J01.00 - Acute maxillary sinusitis, unspecified ER Course Patient presents with upper respiratory symptoms, headache and muscle aches. Differential includes viral upper respiratory infection, sinusitis, influenza amongst others. She says she has had some wheezing although her lungs are clear at this time. Evaluation with influenza swab. Patient treated with albuterol also patient given Tylenol. Influenza neg. Improved after Albuterol. Discussed treatment plan with patient. She is complaining about more maxillary sinus tenderness and congestion. Influenza vaccination given to the patient. Patient stable for outpatient observation and treatment. Last Vital Signs Date Time Temp Pulse Resp B/P (MAP) Pulse Ox O2 Delivery O2 Flow Rate FiO2 02/01/19 17:44 98.6 89 18 130/76 99 Room Air 21 Status: improved Disposition: HOME, SELF-CARE Condition: Improved Scripts Promethazine HCl/Codeine (Prometh-Codein 6.25-10 mg/5 ml) 5 Ml Syrup 5 ML PO Q6HR PRN for For Cough, #60 ML Prov: Kyle Cruz MD 02/01/19 Ibuprofen* (MOTRIN*) 600 Mg Tablet 600 MG ORAL Q6H PRN for For Pain, #16 TAB 0 Refills Prov: Kyle Cruz MD 02/01/19 Chlorpheniramine Maleate (CHLOR-TRIMETON) 4 Mg Tablet 4 MG PO Q6HR PRN for congestion, #10 TAB Prov: Kyle Cruz MD 02/01/19 Albuterol Sulfate* (ALBUTEROL SULFATE MDI*) 8.5 Gm Hfa.aer.ad 2 PUFF INH Q6H, #1 EA 0 Refills Prov: Kyle Cruz MD 02/01/19 Kyle Cruz MD Feb 01, 2019 14:53
[2019-02-01] MEDS ORDERED: Albuterol ud Inhalation HHN ONE (15:00)
[2019-02-01 15:09] VITALS: BP 138/78
--- NOTE | 2019-02-01 15:15 | NUR ---
ED Nurse Note: pt from home walked in c/o throat pain headache and congestion ermd eval done pt medicated and flu swab sent.
[2019-02-01] MEDS ORDERED: ALBUTEROL SULF8.5 GM INH (17:29)
[2019-02-01] MEDS ORDERED: IBUPROFEN600 MG ORAL (17:29)
[2019-02-01] MEDS ORDERED: PROMETH-CODEIN 65 ML PO (17:29)
[2019-02-01] MEDS ORDERED: CHLOR-TRIMETON4 MG PO (17:29)
[2019-02-01 17:44] VITALS: BP 130/76
--- NOTE | 2019-02-01 17:48 | NUR ---
ED Nurse Note: Pt cleared by health care Provider for discharge. DC instructions/prescription was given and explained to pt and verbalized understanding of teachings. All medical deviecs such as ID band removed. Pt is AAO x4, ambulatory and left with all personal belongings.
== END 2019-02-01 17:44 | disposition home or self-care (01) ==
LOC: EMR 15:14
DX: J06.9 Acute upper respiratory infection, unspecified (principal); J01.00 Acute maxillary sinusitis, unspecified; F17.200 Nicotine dependence, unspecified, uncomplicated; Z91.040 Latex allergy status
CPT/HCPCS: 86710; 90686; 94640; 94664; 96372; G0008; Z7502; 90689; 99283